=== PATIENT | male | born 1975 | race Caucasian/White ===

== ENCOUNTER → 2018-08-18 | Emergency (ER) | payer OTHER ==
[~2018-08-18] VITALS: Ht 175.3 cm; Wt 112.9 kg
[~2018-08-18] MED LIST: ACET1TAB40 PO; ACETAMINOPHEN 325 MG TAB PO ONE; IBUP-1542 PO; LIDOCAINE 1% (MDV) 20 ML INJ SC ONE
[2018-08-18 10:11] VITALS: BP 146/77; PULSE 75; RESP 16; Ht 175.3 cm; Wt 112.9 kg
--- NOTE | 2018-08-18 12:31 | ERD ---
ER Documentation Chief Complaint Chief Complaint BILATERAL GREAT TOE PAIN W/ INGROWN TOENAILS, HX DIABETES HPI 43-year-old male presents with a one-week history of worsening pain in the jatinder ateral toes. Is a history of ingrown toenails. Denies any bleeding or discharge or fevers or history of trauma. ROS All systems reviewed and are negative except as per history of present illness. Medications Home Meds Active Scripts Acetaminophen with Codeine (Acetaminophen-Cod #3 Tablet) 1 Each Tablet, 1 TAB PO Q6H PRN for PAIN, #7 TAB Prov:SUSI TSANG MD 08/18/18 Ibuprofen* (Motrin*) 600 Mg Tab, 600 MG PO Q6, #20 TAB Prov:SUSI TSANG MD 08/18/18 Allergies Allergies: Coded Allergies: No Known Allergy (Unverified , 08/18/18) PMhx/Soc Hx Alcohol Use: No Hx Substance Use: No Hx Tobacco Use: Yes Smoking Status: Former smoker Physical Exam Vitals Vital Signs Date Temp Pulse Resp B/P (MAP) Pulse Ox O2 O2 Flow FiO2 Time Delivery Rate 08/18/18 98.4 75 16 146/77 99 10:11 (100) Physical Exam Const: No acute distress Head: Atraumatic Eyes: Normal Conjunctiva ENT: Normal External Ears, Nose and Mouth. Neck: Full range of motion. No meningismus. Resp: Clear to auscultation bilaterally Cardio: Regular rate and rhythm, no murmurs Abd: Soft, non tender, non distended. Normal bowel sounds Skin: No petechiae or rashes Back: No midline or flank tenderness Ext: No cyanosis, or edema. Bilateral inguinal nodes with thickened nails and C-shaped nails. Mild surrounding irritation without warmth, erythema, streaking. No bony tenderness or deformities. Neur: Awake and alert Psych: Normal Mood and Affect Results 24 hrs Current Medications Medications Dose Sig/Perfecto Start Time Status Last (Trade) Ordered Route PRN Stop Time Admin Dose Reason Admin 650 mg ONCE ONCE 08/18/18 DC 08/18/18 Acetaminophen PO 12:00 08/18/18 11:43 (Tylenol 12:01 Tab) Lidocaine 20 ml ONCE ONCE 08/18/18 DC (Xylocaine SC 12:00 08/18/18 1% (Mdv) 20 12:01 ml) Procedures/MDM Patient presents with bilateral ingrown toenails on the bilateral edges without signs to suggest osteomyelitis, fracture, dislocation, significant cellulitis. Procedure note-bilateral big toes were prepped with Betadine. 4 cc of lidocaine was used for local infiltration. Bilateral edges of the nails were avulsed using clamps and scissors. Wound bed was debrided and wounds were dressed. Patient tolerated procedure well. Patient presents with bilateral ingrown toenails of the bilateral big nose without signs of ostium myelitis, fracture, dislocation, ischemia, deficits, additional concerning signs or symptoms. He will be discharged home with a short course of ibuprofen, Tylenol 3, primary care follow-up and return precautions. The patient was stable with no new complaints during the ER course. Clinically, there is no current evidence to suggest meningitis, sepsis, acute abdomen, pneumonia, stroke, acute coronary syndrome, pulmonary embolism, aortic dissection or any other emergent condition appearing to require further evaluation or hospitalization. Patient counseled regarding my diagnostic impression and care plan. Prior to discharge all questions answered. Pt agrees with treatment plan and understands strict return precautions. Pt is instructed to follow up with primary care provider within 24-48 hours. Precautionary instructions provided including instructions to return to the ER if not i mproving or for any worsening or changing symptoms or concerns. Departure Diagnosis: Primary Impression: Ingrown toenail Condition: Stable Patient Instructions: Ingrown Toenail, Excised Additional Instructions: Recheck for redness, fevers, new or worsening symptoms. See podiatry for recurrent ingrown toenails for more definitive treatment. SUSI TSANG MD Aug 18, 2018 12:31
== END | disposition home or self-care (01) ==
LOC: FTE 09:25
DX: L60.0 Ingrowing nail (principal); Z87.891 Personal history of nicotine dependence
CPT/HCPCS: 11750; Z7502; Z7610